=== PATIENT | female | born 1995 | race Asian ===

== ENCOUNTER 2019-10-28 20:16 | Emergency (ER) | payer OTHER ==
[~2019-10-28] VITALS: Ht 167.6 cm; Wt 68.1 kg
[2019-10-28 20:17] VITALS: BP 118/82
[2019-10-28] MEDS ORDERED: DEPO150I12 IM (21:10)
== END 2019-10-28 22:19 | disposition home or self-care (01) ==
LOC: M ED 20:16
DX: F32.9 Major depressive disorder, single episode, unspecified (principal); Z79.3 Long term (current) use of hormonal contraceptives